=== PATIENT | female | born 1975 | race Hispanic/Latino ===

== ENCOUNTER 2021-01-06 21:56 | Observation (INO) | payer OTHER ==
[~2021-01-06] VITALS: Ht 175.3 cm; Wt 104.0 kg
[~2021-01-06 21:56] MED LIST: ACET-2743 PO; AZIT600T5 PO; EFAV1TAB PO; FLUC200T8 PO; IBUP-2071 PO; LISI10TA24 PO; METF-444 PO; SULF1TAB42 PO; [UNRECOGNIZED DRUG - OTHER] PO
[2021-01-06 23:12] LABS: BASOPHILS % (AUTO) 0.4 % (0.0-5.0); EOSINOPHILS % (AUTO) 1.6 % (0.0-8.0); HEMATOCRIT 35.6 % (36-48); MEAN CORPUSCULAR HEMOGLOBIN 28.7 pg (27.0-33.0); MEAN CORPUSCULAR HGB CONC 32.9 g/dL (32.0-36.0); MEAN CORPUSCULAR VOLUME 87.5 fL (79-99); MONOCYTES % (AUTO) 6.9 % (3.0-13.0); NEUTROPHILS % (AUTO) 68.7 % (40.0-77.0); PLATELET COUNT (AUTO) 275 K/uL (130-400); RED BLOOD CELL COUNT(AUTO) 4.07 MIL/uL (4.00-5.50); RED CELL DISTRIBUTION WIDTH 12.2 % (11.0-15.5); WHITE BLOOD COUNT (AUTO) 6.7 K/uL (4.8-10.8)
[2021-01-06 23:23] LABS: CREATININE 2.5 mg/dL (0.5-1.5); POTASSIUM 3.7 mmol/L (3.5-5.1)
[2021-01-06 23:26] LABS: INR 0.99 (0.85-1.15); PROTHROMBIN TIME 10.8 SEC (9.6-11.6)
[2021-01-06 23:27] LABS: PARTIAL THROMBOPLASTIN TIME 25.3 SEC (26.3-35.5)
[2021-01-06 23:28] LABS: ALBUMIN 2.8 g/dL (3.5-5.0); BILIRUBIN,TOTAL 0.2 mg/dL (0.2-1.0); TOTAL PROTEIN, SERUM 7.7 g/dL (6.0-8.3)
[2021-01-06 23:31] LABS: B-TYPE NATRIURETIC PEPTIDE 40 pg/mL (0-100)
[2021-01-07 00:03] LABS: CHOLESTEROL 278 mg/dL (<200); HDL CHOLESTEROL 55 mg/dL (35-85); LDL DIRECT 132 mg/dL (0-99); TRIGLYCERIDES 448 mg/dL (30-200)
[2021-01-07] MEDS ORDERED: HYDRALAZINE HCL 20 MG/ML VIAL IV PRN (00:15)
[2021-01-07] MEDS ORDERED: NITROGLYCERIN 0.4 MG SL TAB SL PRN (00:15)
[2021-01-07] MEDS ORDERED: ONDANSETRON HCL 4 MG/2 ML VIAL IV PRN (00:15)
[2021-01-07] MEDS ORDERED: SODIUM CHLORIDE 0.9% 1000ML 1,000 ML IV SCH (00:15)
[2021-01-07] MEDS ORDERED: SODIUM CHLORIDE 0.9% 500ML 1,000 ML IV ONE ×2 (00:18→00:54)
[2021-01-07 00:35] LABS: ABG BASE EXCESS -3.2 mmol/L (-2.0-3.0); ABG HCO3 21.3 mmol/L (21.0-28.0); ABG OXYGEN SATURATION 96.8 % (95.0-99.0); ABG PCO2 37 mmHg (32-45)
[2021-01-07 00:43] LABS: CREATINE KINASE, TOTAL 56 U/L (21-232); HCG,QUANTITATIVE 0 mIU/mL (0-5); MYOGLOBIN 62 ng/mL (10-92)
[2021-01-07] MEDS ORDERED: SODIUM CHLORIDE 0.9% 500ML 500 ML IV ONE (02:12)
[2021-01-07] MEDS ORDERED: ACETAMINOPHEN ELIXIR 650 MG/20.3 ML UDCUP ONE ×2 (07:37→16:47)
[2021-01-07 08:07] LABS: APPEARANCE,URINE Clear (CLEAR); BILIRUBIN,URINE Negative (NEGATIVE); COLOR,URINE Yellow (YELLOW); GLUCOSE, URINE (UA) >=1000 mg/dL (NEGATIVE); KETONES,URINE Negative (NEGATIVE); LEUKOCYTE ESTERASE ,URINE Negative (NEGATIVE); NITRATE,URINE Negative (NEGATIVE); OCCULT BLOOD,URINE Small (NEGATIVE); PH,URINE 5.5 (5.0-8.0); PROTEIN,URINE 300 mg/dL (NEGATIVE); UROBILINOGEN,URINE 0.2 mg/dL (0.2-1.0)
[2021-01-07 08:16] LABS: BACTERIA,URINE Rare /HPF (None Seen); RBC,URINE 0-1 /HPF (0-1); SQUAMOUS EPITHELIAL CELL,UR Rare /HPF (0-2); WBC,URINE 0-1 /HPF (0-1)
[2021-01-07] MEDS ORDERED: FAMOTIDINE 20MG TAB 20 MG TAB ONE (08:41)
[2021-01-07] MEDS ORDERED: HEPARIN SODIUM 5000UNIT/ML 1ML VIAL ONE (08:41)
[2021-01-07] MEDS ORDERED: SODIUM CHLORIDE 0.9% 1000ML 0 ML IV ONE (08:48)
[2021-01-07] MEDS ORDERED: AMLODIPINE BESYLATE 5 MG TAB ONE (10:27)
[2021-01-07 10:54] LABS: POTASSIUM 4.1 mmol/L (3.5-5.1)
[2021-01-07 15:45] LABS: PROTEIN,URINE RANDOM 308.8 mg/dL (0-11.9)
[2021-01-07 18:22] VITALS: BP 150/99
[2021-01-07] MEDS ORDERED: ROSU20TA31 PO (18:55)
[2021-01-07] MEDS ORDERED: [UNRECOGNIZED DRUG - OTHER] PO (18:55)
[2021-01-07] MEDS ORDERED: FENO145T26 PO (18:55)
[2021-01-07] MEDS ORDERED: BIOT10004 PO (18:55)
[2021-01-07] MEDS ORDERED: GABA-529 PO (18:55)
[2021-01-07] MEDS ORDERED: CHOL100046 PO (18:55)
[2021-01-07] MEDS ORDERED: CETI10TA57 PO (18:55)
[2021-01-07] MEDS ORDERED: TRAZ-185 PO (18:55)
[2021-01-07] MEDS ORDERED: GABA300S PO (18:55)
[2021-01-07 19:55] VITALS: BP 140/87
[2021-01-07] MEDS: FAMOTIDINE 20MG TAB 20 MG TAB PO SCH (21:15)
[2021-01-07] MEDS: HEPARIN SODIUM 5000UNIT/ML 1ML VIAL SQ SCH (21:17)
[2021-01-07] MEDS: INSULIN GLARGINE 100 UNITS/ML 10 ML VIAL SQ SCH (21:18)
[2021-01-07] MEDS: INSULIN HUMULIN R 100 UNIT/ML 3ML SQ SCH (21:21)
[2021-01-07 23:39] VITALS: BP 138/91
[2021-01-08 03:51] VITALS: BP 119/70
[2021-01-08 05:07] LABS: BASOPHILS % (AUTO) 0.8 % (0.0-5.0); LYMPHOCYTES % (AUTO) 25.5 % (21.0-51.0); MEAN CORPUSCULAR HEMOGLOBIN 28.4 pg (27.0-33.0); MEAN CORPUSCULAR HGB CONC 32.1 g/dL (32.0-36.0); MEAN CORPUSCULAR VOLUME 88.5 fL (79-99); MONOCYTES % (AUTO) 6.8 % (3.0-13.0); NEUTROPHILS % (AUTO) 64.6 % (40.0-77.0); PLATELET COUNT (AUTO) 256 K/uL (130-400); RED BLOOD CELL COUNT(AUTO) 3.84 MIL/uL (4.00-5.50); RED CELL DISTRIBUTION WIDTH 12.6 % (11.0-15.5); WHITE BLOOD COUNT (AUTO) 6.6 K/uL (4.8-10.8)
[2021-01-08 05:37] LABS: ALBUMIN 2.3 g/dL (3.5-5.0); BILIRUBIN,TOTAL 0.1 mg/dL (0.2-1.0); CREATININE 1.9 mg/dL (0.5-1.5); MAGNESIUM 1.6 mg/dL (1.80-2.40); PHOSPHORUS 3.8 mg/dL (2.5-4.9); POTASSIUM 3.7 mmol/L (3.5-5.1); THYROID STIMULATING HORMONE 1.02 uIU/mL (0.36-3.74); TOTAL PROTEIN, SERUM 6.5 g/dL (6.0-8.3); URIC ACID 3.8 mg/dL (2.6-7.2)
[2021-01-08] MEDS: ACETAMINOPHEN 325 MG TAB PO PRN ×2 (05:54→11:47)
[2021-01-08] MEDS: INSULIN HUMULIN R 100 UNIT/ML 3ML SQ SCH ×2 (06:07→11:33)
[2021-01-08] MEDS ORDERED: MAGNESIUM 2GM PREMIX 50ML 50 ML IV PRN (07:30)
[2021-01-08 08:00] VITALS: BP 134/88
[2021-01-08] MEDS: INSULIN GLARGINE 100 UNITS/ML 10 ML VIAL SQ SCH (09:00)
[2021-01-08] MEDS ORDERED: AMLODIPINE BESYLATE 5 MG TAB PO SCH (09:00)
[2021-01-08] MEDS ORDERED: Vitamin B Complex/Vit C/Folic Acid PO SCH (09:00)
[2021-01-08] MEDS: FAMOTIDINE 20MG TAB 20 MG TAB PO SCH (09:20)
[2021-01-08] MEDS: HEPARIN SODIUM 5000UNIT/ML 1ML VIAL SQ SCH (09:37)
[2021-01-08 11:44] VITALS: BP 144/94
[2021-01-08] MEDS ORDERED: FLUC200T8 PO (12:13)
[2021-01-08] MEDS ORDERED: LIRA0.6P SQ (12:13)
[2021-01-08] MEDS ORDERED: CEPH500T PO (12:13)
[2021-01-08] MEDS ORDERED: PREG25 PO (12:13)
[2021-01-08] MEDS ORDERED: KRIL500C PO (12:13)
[2021-01-08] MEDS ORDERED: ELVI1TAB3 PO (12:13)
[2021-01-08] MEDS ORDERED: INSU100V3 IJ ×3 (12:13)
== END 2021-01-08 15:00 | disposition home or self-care (01) ==
LOC: EDH 21:56 → EDHIP 01-07 00:01 → 3DH 01-07 18:13
PROVIDERS: ADMIT Internal Medicine Critical Care Medicine; ATTEND Internal Medicine Critical Care Medicine
DX: N17.9 Acute kidney failure, unspecified (principal); E83.42 Hypomagnesemia; E11.22 Type 2 diabetes mellitus with diabetic chronic kidney disease; I12.9 Hypertensive chronic kidney disease with stage 1 through stage 4 chronic kidney disease, or unspecified chronic kidney disease; N18.9 Chronic kidney disease, unspecified; E11.65 Type 2 diabetes mellitus with hyperglycemia; E78.1 Pure hyperglyceridemia; L71.9 Rosacea, unspecified; E78.2 Mixed hyperlipidemia; E66.9 Obesity, unspecified; Z85.41 Personal history of malignant neoplasm of cervix uteri; Z90.710 Acquired absence of both cervix and uterus; Z79.4 Long term (current) use of insulin; Z79.899 Other long term (current) drug therapy; Z88.1 Allergy status to other antibiotic agents; Z88.3 Allergy status to other anti-infective agents; Z68.33 Body mass index [BMI] 33.0-33.9, adult
CPT/HCPCS: 36415 ×3; 36600; 76770; 80048; 80053 ×2; 80061; 81001; 82010; 82550 ×2; 82570; 82803; 82948 ×6; 83036; 83605; 83690; 83735; 83874; 83880; 84100; 84156; 84443; 84484; 84550; 84702; 85025 ×2; 85610; 85730; 86359; 86361; 87040 ×2; 93005; 96365; 96366; 96372 ×2; 99285; G0378 ×39; J1644 ×3; J1815 ×2; J3475; J7040 ×3; J7030